=== PATIENT | male | born 1960 | race Caucasian/White ===

== ENCOUNTER 2016-09-11 15:49 | Observation (INO) | payer BC ==
[~2016-09-11] VITALS: Ht 177.8 cm; Wt 120.0 kg
[~2016-09-11 15:49] MED LIST: ACTOPLUS MET1 TABLE1 PO; ACTOPLUS MET1 TABLET PO; ASPIRIN E.C.81 M2 PO; CLINDAMYCIN HC300 MG PO; CYCLOBENZAPRINE; FUROSEMIDE; GABAPENTIN300 MG PO; GLIMEPIRIDE; HYDROCHLOROTHIA25 MG PO; HYDRODIURIL,O12.5 M2 PO; INDOMETHACIN50 MG PO; KADIAN50 MG PO; LASIX40 MG PO; LIDOCAINE700 MG TD; LIPITOR20 MG PO; LISINOPRIL; LUNESTA1 MG PO; MODAFINIL; MODAFINIL200 MG PO; MONTELUKAST; MONTELUKAST SOD10 MG PO; MORPHINE SULFAT50 MG PO; MORPHINE SULFATE; OMEPRAZOLE; OMEPRAZOLE20 MG; OMEPRAZOLE20 MG PO; OXYCODONE; OXYCODONE-APAP1 EACH PO; PAXIL10 MG PO; PERCOCET 10-321 EACH PO; PIOGLITAZONE-M1 EAC1 PO; PROVIGIL200 MG PO; SERTRALINE; SERTRALINE HCL100 MG PO; SERTRALINE HCL50 MG; SIMVASTATIN; SIMVASTATIN40 MG PO; THERAGRAN1 TABLET PO; VERAPAMIL; VERAPAMIL HCL240 MG PO; VERAPAMIL HCL40 MG PO; VITAMIN D1000 INTUN PO; ZANAFLEX4 MG PO; ZESTRIL,PRINIVI10 MG PO; [UNRECOGNIZED DRUG - OTHER] MC
[2016-09-11] MEDS ORDERED: KADIAN50 MG PO (16:29)
[2016-09-11] MEDS ORDERED: PRILOSEC20 MG PO (16:30)
[2016-09-11] MEDS ORDERED: JANUVIA100 MG PO (16:30)
[2016-09-11] MEDS ORDERED: ZANAFLEX4 MG PO (16:30)
[2016-09-11] MEDS ORDERED: ASPIR 8181 M1 PO (16:30)
[2016-09-11] MEDS ORDERED: PROVIGIL200 MG PO (16:31)
[2016-09-11] MEDS ORDERED: VERAPAMIL HCL360 MG PO (16:31)
[2016-09-11] MEDS ORDERED: METFORMIN HCL1000 M3 PO (16:32)
[2016-09-11] MEDS ORDERED: NEURONTIN300 MG PO (16:32)
[2016-09-11 17:04] LABS: EOSINOPHIL (%) 1.1 % (0-5); EOSINOPHIL COUNT 0.2 K/uL (0-0.3); HEMATOCRIT 39.1 % (38.0-50.0); IMMATURE GRANULOCYTE (%) 0.6 % (0.0-0.7); IMMATURE GRANULOCYTE COUNT 0.8 K/uL; LYMPHOCYTE COUNT 2.5 K/uL (1.0-2.8); MCH 29.8 PG (29.0-34.0); MCV 87.7 FL (86-99); MEAN PLAT.VOLUME 11.2 uM^3 (9.0-12.4); MONOCYTE (%) 7.7 % (3-12); MONOCYTE COUNT 1.1 K/uL (0-0.8); NEUTROPHIL (%) 72.6 % (45-76); NEUTROPHIL COUNT 10.2 K/uL (1.8-6.4); PLATELET COUNT 219 K/uL (156-360); RBC DIS.WIDTH-CV 12.4 % (11.8-14.6); RBC DIS.WIDTH-SD 39.1 % (39-53); RED BLOOD COUNT 4.46 M/uL (4.00-5.50); WHITE BLOOD COUNT 14.1 K/uL (4.1-10.2)
[2016-09-11 17:14] LABS: INTER. NORMALIZED RATIO 1.1; PROTHROMBIN TIME 11.6 (9.2-11.2); PTT 36.9 (25-32)
[2016-09-11 17:19] LABS: CHLORIDE 106 mEq/L (99-109); POTASSIUM 4.2 mEq/L (3.7-5.4); SODIUM 140 mEq/L (136-147)
[2016-09-11 17:21] LABS: GLUCOSE 196 mg/dL (70-99)
[2016-09-11 17:22] LABS: ANION GAP 11 MEQ/L (2-14)
[2016-09-11 17:25] LABS: GFR ESTIMATE (CALCULATED) > 59 mL/min/
[2016-09-11 17:26] LABS: UREA NITROGEN (BUN) 18 mg/dL (9-23)
[2016-09-11 17:28] LABS: TROP-I INTERPRETATION NEGATIVE; TROPONIN-I < 0.01 ng/mL (0.0-0.30)
[2016-09-11 21:15] VITALS: BP 133/58
[2016-09-11 23:31] LABS: TROP-I INTERPRETATION NEGATIVE; TROPONIN-I < 0.01 ng/mL (0.0-0.30)
[2016-09-12] VITALS (9 sets, daily range): BP systolic 116–147; BP diastolic 62–87
[2016-09-12 01:47] LABS: ADD MIUA? NO; BILIRUBIN NEGATIVE; BLOOD NEGATIVE; COLOR YELLOW ((YELLOW)); GLUCOSE (STRIP) 100; KETONES NEGATIVE; LEUKOCYTES NEGATIVE; NITRITE NEGATIVE; PH, URINE 6.5 (5-8); PROTEIN (STRIP) NEGATIVE; UCUL ADDED? NO; UROBILINOGEN 0.2 MG/DL (0.2-1.0)
[2016-09-12 02:04] LABS: SPECIFIC GRAVITY 1.048 (1.000-1.030)
[2016-09-12 06:10] LABS: HDL CHOLESTEROL 31 MG/DL (Desirable>=40); LDL CHOLESTEROL 50 mg/dL (Desirable<100); NON-HDL CHOLESTEROL 69 mg/dL (Desirable<160); TOTAL CHOLESTEROL 100 mg/dL (Desirable<200); TRIGLYCERIDES 96 MG/DL (Normal: <150)
[2016-09-12 06:43] LABS: TROP-I INTERPRETATION NEGATIVE; TROPONIN-I < 0.01 ng/mL (0.0-0.30)
[2016-09-12 07:04] LABS: Estimated Average Glucose 189 mg/dL (70-123); HEMOGLOBIN A1c (GLYCOHEMOGLOB) 8.2 % HGB (Below 5.7)
[2016-09-12 08:03] LABS: POINT-OF-CARE METER ID UU13113831
[2016-09-12 08:38] LABS: MCH 29.5 PG (29.0-34.0); MCHC 32.6 G/DL (30.0-36.0); MCV 90.3 FL (86-99); PLATELET COUNT 231 K/uL (156-360); RBC DIS.WIDTH-CV 12.9 % (11.8-14.6); RBC DIS.WIDTH-SD 41.5 % (39-53); RED BLOOD COUNT 4.21 M/uL (4.00-5.50); WHITE BLOOD COUNT 10.9 K/uL (4.1-10.2)
[2016-09-12 12:28] LABS: POINT-OF-CARE METER ID UU13113831
[2016-09-12 15:36] LABS: TROP-I INTERPRETATION NEGATIVE; TROPONIN-I < 0.01 ng/mL (0.0-0.30)
[2016-09-12 17:39] LABS: POINT-OF-CARE METER ID UU13113831
[2016-09-12 22:48] LABS: POINT-OF-CARE METER ID UU13113831
[2016-09-13] VITALS (7 sets, daily range): BP systolic 121–180; BP diastolic 58–102
[2016-09-13 06:40] LABS: TROP-I INTERPRETATION NEGATIVE; TROPONIN-I < 0.01 ng/mL (0.0-0.30)
[2016-09-13 07:30] LABS: POINT-OF-CARE METER ID UU14162513
[2016-09-13 11:40] LABS: POINT-OF-CARE METER ID UU14162513
[2016-09-13 17:35] LABS: POINT-OF-CARE METER ID UU13113831
[2016-09-14 00:15] VITALS: BP 155/85
[2016-09-14 04:23] VITALS: BP 119/77
[2016-09-14 07:35] LABS: POINT-OF-CARE METER ID UU14162513
[2016-09-14 08:24] VITALS: BP 121/78
[2016-09-14 11:45] VITALS: BP 135/75
[2016-09-14 15:24] LABS: POINT-OF-CARE METER ID UU13113819; POINT-OF-CARE USER ID 515036437
[2016-09-14 20:11] VITALS: BP 111/65
[2016-09-15 00:20] VITALS: BP 110/59
[2016-09-15 05:30] VITALS: BP 126/85
[2016-09-15 07:20] VITALS: BP 142/87
[2016-09-15 11:54] VITALS: BP 140/80
[2016-09-15] MEDS ORDERED: PROCARDIA10 MG PO (12:23)
[2016-09-15] MEDS ORDERED: ATORVASTATIN CA40 MG PO (12:23)
== END 2016-09-15 17:12 | disposition home or self-care (01) ==
LOC: EME → EDBD 15:49 → EDSEX 15:49 → EME 15:49 → EDOF 19:26 → 4EAST 19:26 → EDOF 19:26 → 5WEST 19:26 → 4EAST 09-14 20:09
PROVIDERS: Emergency Medicine; Hospitalist; Internal Medicine; Internal Medicine Cardiovascular Disease; Physician Assistant Medical
DX: R07.9 Chest pain, unspecified (principal); R00.1 Bradycardia, unspecified; T46.1X5A Adverse effect of calcium-channel blockers, initial encounter; I48.0 Paroxysmal atrial fibrillation; I25.10 Atherosclerotic heart disease of native coronary artery without angina pectoris; R94.31 Abnormal electrocardiogram [ECG] [EKG]; I10 Essential (primary) hypertension; E66.01 Morbid (severe) obesity due to excess calories; Z68.41 Body mass index [BMI] 40.0-44.9, adult; E11.9 Type 2 diabetes mellitus without complications; D72.829 Elevated white blood cell count, unspecified; J98.11 Atelectasis; E04.1 Nontoxic single thyroid nodule; G47.33 Obstructive sleep apnea (adult) (pediatric); E78.5 Hyperlipidemia, unspecified; G89.29 Other chronic pain; Z79.891 Long term (current) use of opiate analgesic; F41.9 Anxiety disorder, unspecified; F32.9 Major depressive disorder, single episode, unspecified; Z87.891 Personal history of nicotine dependence; Z83.3 Family history of diabetes mellitus; Z82.5 Family history of asthma and other chronic lower respiratory diseases; Z82.49 Family history of ischemic heart disease and other diseases of the circulatory system; Z83.79 Family history of other diseases of the digestive system; Z79.82 Long term (current) use of aspirin; Z79.84 Long term (current) use of oral hypoglycemic drugs
CPT/HCPCS: 71020; 71275; 80048; 80061; 81003; 82948; 83036; 84443; 84484; 85025; 85027; 85610; 85730; 93005; 94660; 99281; 99284; C1769; C1887; G0378; J1644; J1650; J1815; J2250; J3010; J7030; J7040; J7050; S0028

== ENCOUNTER 2017-04-08 16:23 | Observation (INO) | payer BC ==
[~2017-04-08] VITALS: Ht 180.3 cm; Wt 118.2 kg
[~2017-04-08 16:23] MED LIST changes: +ASPIR 8181 M1 PO; +ATORVASTATIN CA40 MG PO; +JANUVIA100 MG PO; +METFORMIN HCL1000 MG PO; +NEURONTIN300 MG PO; +PRILOSEC20 MG PO; +PROCARDIA10 MG PO; +VERAPAMIL HCL360 MG PO
[2017-04-08 18:24] LABS: HEMATOCRIT 42.7 % (38.0-50.0); MCH 28.4 PG (29.0-34.0); MCHC 32.8 G/DL (30.0-36.0); MCV 86.6 FL (86-99); MEAN PLAT.VOLUME 11.8 uM^3 (9.0-12.4); PLATELET COUNT 239 K/uL (156-360); RBC DIS.WIDTH-CV 12.4 % (11.8-14.6); RBC DIS.WIDTH-SD 39.3 % (39-53); RED BLOOD COUNT 4.93 M/uL (4.00-5.50); WHITE BLOOD COUNT 10.4 K/uL (4.1-10.2)
[2017-04-08 18:34] LABS: CHLORIDE 104 mEq/L (99-109)
[2017-04-08 18:35] LABS: SODIUM 140 mEq/L (136-147)
[2017-04-08 18:36] LABS: GLUCOSE 121 mg/dL (70-99)
[2017-04-08 18:38] LABS: ANION GAP 10 MEQ/L (2-14)
[2017-04-08 18:40] LABS: GFR ESTIMATE (CALCULATED) > 59 mL/min/
[2017-04-08 18:41] LABS: UREA NITROGEN (BUN) 16 mg/dL (9-23)
[2017-04-08 18:45] LABS: TROP-I INTERPRETATION NEGATIVE; TROPONIN-I < 0.01 ng/mL (0.0-0.30)
[2017-04-08] MEDS ORDERED: LIPITOR40 MG PO (20:34)
[2017-04-08] MEDS ORDERED: NIFEDIPINE ER30 MG PO (20:35)
[2017-04-08] MEDS ORDERED: VICTOZA0.6 MG/0.1 SC (20:37)
[2017-04-08] MEDS ORDERED: LISINOPRIL40 MG PO (20:37)
[2017-04-08] MEDS ORDERED: ADVAIR 250/501 DISK IH (20:37)
[2017-04-08] MEDS ORDERED: ANDROGEL75 GM TD (20:38)
[2017-04-08] MEDS ORDERED: PERCOCET 10/1 TABLET PO (20:38)
[2017-04-08 22:54] VITALS: BP 114/66
[2017-04-09 01:46] LABS: TROP-I INTERPRETATION NEGATIVE; TROPONIN-I < 0.01 ng/mL (0.0-0.30)
[2017-04-09 04:03] VITALS: BP 109/65
[2017-04-09 07:20] VITALS: BP 102/63
[2017-04-09 08:23] LABS: POINT-OF-CARE METER ID UU14162513
[2017-04-09 09:22] LABS: HDL CHOLESTEROL 30 MG/DL (Desirable>=40); LDL CHOLESTEROL 66 mg/dL (Desirable<100); NON-HDL CHOLESTEROL 89 mg/dL (Desirable<160); TOTAL CHOLESTEROL 119 mg/dL (Desirable<200); TRIGLYCERIDES 115 MG/DL (Normal: <150)
[2017-04-09 09:50] LABS: TROP-I INTERPRETATION NEGATIVE; TROPONIN-I < 0.01 ng/mL (0.0-0.30)
[2017-04-09 11:49] VITALS: BP 107/63
[2017-04-09 12:43] LABS: POINT-OF-CARE METER ID UU14162513
== END 2017-04-09 14:07 | disposition home or self-care (01) ==
LOC: EME 16:23 → EDOF 21:21 → 5WEST 21:21 → EDOF 21:21 → ENRESERV 21:23 → 5WEST 22:38 → ENPENDDIS 04-09 → 5WEST 04-09 14:07
PROVIDERS: Hospitalist; Physician Assistant Medical
DX: R07.9 Chest pain, unspecified (principal); D72.829 Elevated white blood cell count, unspecified; G47.33 Obstructive sleep apnea (adult) (pediatric); E11.9 Type 2 diabetes mellitus without complications; I10 Essential (primary) hypertension; E78.5 Hyperlipidemia, unspecified; Z82.49 Family history of ischemic heart disease and other diseases of the circulatory system; E66.01 Morbid (severe) obesity due to excess calories; Z68.36 Body mass index [BMI] 36.0-36.9, adult; G89.29 Other chronic pain; M54.16 Radiculopathy, lumbar region; J45.909 Unspecified asthma, uncomplicated; Z87.891 Personal history of nicotine dependence; R51 Headache; R42 Dizziness and giddiness; Z79.82 Long term (current) use of aspirin; Z79.84 Long term (current) use of oral hypoglycemic drugs; Z82.5 Family history of asthma and other chronic lower respiratory diseases; Z83.79 Family history of other diseases of the digestive system; Z83.3 Family history of diabetes mellitus
CPT/HCPCS: 71020; 80048; 80061; 82948; 84484; 85027; 93005; 99281; 99285; G0378; J1650

== ENCOUNTER 2017-05-31 02:59 | Emergency (ER) | payer BC ==
[~2017-05-31] VITALS: Ht 177.8 cm; Wt 115.4 kg
[~2017-05-31 02:59] MED LIST changes: +ADVAIR 250/501 DISK IH; +ANDROGEL75 GM TD; +LIPITOR40 MG PO; +LISINOPRIL40 MG PO; +NIFEDIPINE ER30 MG PO; +PERCOCET 10/1 TABLET PO; +VICTOZA0.6 MG/0.1 SC
[2017-05-31 03:15] LABS: MCH 28.4 PG (29.0-34.0); MCV 86.1 FL (86-99); MEAN PLAT.VOLUME 11.2 uM^3 (9.0-12.4); PLATELET COUNT 245 K/uL (156-360); RBC DIS.WIDTH-CV 12.8 % (11.8-14.6); RBC DIS.WIDTH-SD 40.1 % (39-53); RED BLOOD COUNT 5.11 M/uL (4.00-5.50); WHITE BLOOD COUNT 14.4 K/uL (4.1-10.2)
[2017-05-31 03:27] LABS: INTER. NORMALIZED RATIO 1.1; PROTHROMBIN TIME 11.6 SEC (10.2-12.9)
[2017-05-31 03:29] LABS: PTT 35.2 SEC (25-37)
[2017-05-31 03:33] LABS: TOTAL BILIRUBIN 0.6 mg/dL (0.0-1.0)
[2017-05-31 03:34] LABS: ALKALINE PHOSPHATASE 77 IU/L (3-129)
[2017-05-31 03:37] LABS: DIRECT BILIRUBIN 0.2 mg/dL (0.0-0.3)
[2017-05-31 03:38] LABS: LIPASE 9 U/L (1.0-51.0)
[2017-05-31 03:53] LABS: TROP-I INTERPRETATION NEGATIVE; TROPONIN-I < 0.01 ng/mL (0.0-0.30)
[2017-05-31 04:13] LABS: CHLORIDE 103 mEq/L (99-109); POTASSIUM 3.9 mEq/L (3.7-5.4); SODIUM 135 mEq/L (136-147)
[2017-05-31 04:15] LABS: GLUCOSE 284 mg/dL (70-99)
[2017-05-31 04:17] LABS: ANION GAP 13 MEQ/L (2-14)
[2017-05-31 04:19] LABS: GFR ESTIMATE (CALCULATED) > 59 mL/min/
[2017-05-31 04:20] LABS: UREA NITROGEN (BUN) 15 mg/dL (9-23)
[2017-05-31 05:00] LABS: ADD MIUA? YES; BILIRUBIN NEGATIVE; BLOOD MODERATE; COLOR COLORLESS ((YELLOW)); GLUCOSE (STRIP) >=500; KETONES NEGATIVE; LEUKOCYTES NEGATIVE; NITRITE NEGATIVE; PROTEIN (STRIP) NEGATIVE; SPECIFIC GRAVITY 1.017 (1.000-1.030); UROBILINOGEN 0.2 MG/DL (0.2-1.0)
[2017-05-31 05:03] LABS: BACTERIA NONE SEEN /HPF; EPITHELIAL CELLS NONE SEEN /HPF; MUCUS TRACE /LPF; UCUL ADDED? NO; WHITE BLOOD CELLS 0-5 /HPF (0-5)
[2017-05-31] MEDS ORDERED: NORCO 5/3251 TABLET PO (06:10)
[2017-05-31] MEDS ORDERED: MOTRIN600 MG PO (06:10)
[2017-05-31 08:51] VITALS: BP 109/47
== END 2017-05-31 08:53 | disposition home or self-care (01) ==
LOC: EME 02:59
PROVIDERS: Emergency Medicine
DX: N13.2 Hydronephrosis with renal and ureteral calculous obstruction (principal); E11.9 Type 2 diabetes mellitus without complications; Z79.84 Long term (current) use of oral hypoglycemic drugs; E78.5 Hyperlipidemia, unspecified; I10 Essential (primary) hypertension; Z86.79 Personal history of other diseases of the circulatory system; K21.9 Gastro-esophageal reflux disease without esophagitis; J45.909 Unspecified asthma, uncomplicated; F32.9 Major depressive disorder, single episode, unspecified; Z79.82 Long term (current) use of aspirin
CPT/HCPCS: 71275; 74174; 80048; 80076; 81003; 83690; 84484; 85027; 85610; 85730; 86850; 86900; 86901; 93005; 99281; 99285; J1885; J2270; J3010; J7030